=== PATIENT | male | born 1965 | race Two or more races ===

== ENCOUNTER 2024-11-08 14:08 | Emergency (ER) | payer BC ==
[~2024-11-08] VITALS: Ht 188 cm; Wt 86.2 kg
[2024-11-08] MEDS ORDERED: BACITRACIN-NEOMYCIN-POLYMYXIN 0.9 GM PACKET TOP ONE (17:31)
== END 2024-11-08 18:07 | disposition home or self-care (01) ==
LOC: ER 14:09
DX: S62.609A Fracture of unspecified phalanx of unspecified finger, initial encounter for closed fracture (principal); X58.XXXA Exposure to other specified factors, initial encounter; Y93.89 Activity, other specified; Y92.89 Other specified places as the place of occurrence of the external cause; Y99.8 Other external cause status